=== PATIENT | female | born 1985 | race African-American/Black ===

== ENCOUNTER 2018-02-08 11:19 | Emergency (ER) | payer SELFPAY ==
[~2018-02-08] VITALS: Ht 162.6 cm; Wt 62.0 kg
[2018-02-08 11:55] LABS: CLARITY URINE CLEAR (CLEAR); COLOR URINE YELLOW (YELLOW); KETONES URINE 3+ (NEGATIVE); LEUKOCYTE ESTERASE URINE 1+ (NEGATIVE); NITRITE URINE NEGATIVE (NEGATIVE); OCCULT BLOOD URINE TRACE (NEGATIVE); PH URINE >=9.0 (4.5-8.0); PROTEIN URINE TRACE (NEGATIVE); SPECIFIC GRAVITY URINE 1.021 (1.005-1.030)
[2018-02-08 15:47] VITALS: BP 135/87
== END 2018-02-08 15:52 | disposition home or self-care (01) ==
LOC: ER 11:44
DX: N39.0 Urinary tract infection, site not specified (principal)
CPT/HCPCS: 81003; 81025; 99283

== ENCOUNTER 2018-02-09 09:57 | Emergency (ER) | payer SELFPAY ==
[~2018-02-09] VITALS: Ht 160 cm; Wt 60.0 kg
[2018-02-09 10:46] LABS: CLARITY URINE CLEAR (CLEAR); COLOR URINE YELLOW (YELLOW); KETONES URINE 2+ (NEGATIVE); LEUKOCYTE ESTERASE URINE 2+ (NEGATIVE); NITRITE URINE NEGATIVE (NEGATIVE); OCCULT BLOOD URINE 1+ (NEGATIVE); PH URINE >=9.0 (4.5-8.0); PROTEIN URINE NEGATIVE (NEGATIVE); SPECIFIC GRAVITY URINE 1.012 (1.005-1.030)
[2018-02-09] MEDS ORDERED: SODIUM CHLORIDE 0.9% 1,000 ML IV ONE (11:00)
[2018-02-09 12:08] VITALS: BP 124/75
== END 2018-02-09 12:10 | disposition home or self-care (01) ==
LOC: ER 09:57
DX: T45.0X1A Poisoning by antiallergic and antiemetic drugs, accidental (unintentional), initial encounter (principal); T37.8X1A Poisoning by other specified systemic anti-infectives and antiparasitics, accidental (unintentional), initial encounter; N39.0 Urinary tract infection, site not specified; F12.10 Cannabis abuse, uncomplicated; R11.0 Nausea; X58.XXXA Exposure to other specified factors, initial encounter; Y92.89 Other specified places as the place of occurrence of the external cause
CPT/HCPCS: 81003; 81025; 87077; 87086; 99284; J7030

== ENCOUNTER 2018-04-11 13:08 | Emergency (ER) | payer MEDICAID ==
[~2018-04-11] VITALS: Ht 160 cm; Wt 61.0 kg
[2018-04-11] MEDS ORDERED: ONDANSETRON HCL 4MG/2ML INJ IV STA (15:40)
[2018-04-11] MEDS ORDERED: SODIUM CHLORIDE 0.9% 1,000 ML IV ONE (15:40)
[2018-04-11 16:44] LABS: BASOPHILS % 0.6 % (0.0-2.0); EOSINOPHILS % 0.1 % (0.0-5.0); HEMATOCRIT. 40.1 % (36.0-48.0); HEMOGLOBIN. 13.9 g/dL (12.0-16.0); LYMPHOCYTES % 26.7 % (20.0-50.0); MEAN CORPUSCULAR HEMOGLOBIN 28.6 pg (28.0-32.0); MEAN PLATELET VOLUME 9.8 fl (7.4-10.4); MONOCYTES % 6.7 % (2.0-8.0); NEUTROPHILS % 65.9 % (40.0-76.0); PLATELET 245 x1000/uL (130-400); RED BLOOD CELL COUNT 4.88 mill/uL (4.2-5.4); RED CELL DISTRIBUTION WIDTH 13.6 % (11.6-14.6)
[2018-04-11 16:57] LABS: HCG SCREEN NEGATIVE
[2018-04-11 16:59] LABS: CHLORIDE 105 mEq/L (98-107)
[2018-04-11 17:04] LABS: INR 1.1; PROTHROMBIN TIME 11.1 sec (9.1-11.1)
[2018-04-11 18:25] LABS: CLARITY URINE CLEAR (CLEAR); KETONES URINE 3+ (NEGATIVE); LEUKOCYTE ESTERASE URINE 1+ (NEGATIVE); NITRITE URINE NEGATIVE (NEGATIVE); OCCULT BLOOD URINE NEGATIVE (NEGATIVE); PROTEIN URINE TRACE (NEGATIVE); SPECIFIC GRAVITY URINE 1.022 (1.005-1.030)
[2018-04-11 18:37] LABS: COLOR URINE YELLOW (YELLOW)
[2018-04-11 19:51] VITALS: BP 118/76
== END 2018-04-11 19:52 | disposition home or self-care (01) ==
LOC: ER 13:36
DX: R11.2 Nausea with vomiting, unspecified (principal); F12.10 Cannabis abuse, uncomplicated; Z87.440 Personal history of urinary (tract) infections
CPT/HCPCS: 36415; 80053; 81003; 81025; 82962; 83605; 83690; 84703; 85025; 85610; 96361; 96374; 99285; J2405; J7030; Z7610